=== PATIENT | male | born 1970 | race Caucasian/White ===

== ENCOUNTER 2017-08-12 21:10 | Emergency (ER) | payer SELFPAY ==
[2017-08-12] MEDS: SMZ/TMP 800/160MG TABLET. PO (22:19)
[2017-08-12] MEDS: HYDROcodone/APAP 5/325MG 1 TAB TABLET PO (22:19)
[2017-08-12] MEDS: DIPHTH,PERTUSS(ACELL),TET TOX 0.5 ML DISP.SYRIN. VAX IM (22:20)
== END 2017-08-12 22:45 | disposition home or self-care (01) ==
LOC: ER 21:10
DX: L03.116 Cellulitis of left lower limb (principal); I10 Essential (primary) hypertension; Z88.0 Allergy status to penicillin
CPT/HCPCS: 90471; 90715; 99283-25

== ENCOUNTER 2018-03-29 18:07 | Emergency (ER) | payer OTHER ==
[~2018-03-29] VITALS: Ht 172.7 cm; Wt 127.0 kg
[~2018-03-29 18:07] MED LIST: HYDR12.58 PO; LISI10TA2 PO; SULF1TAB24 PO; TRAM-48 PO
[2018-03-29 18:17] VITALS: BP 210/135
[2018-03-29] MEDS ORDERED: LIDOCAINE 1% PF 2 ML VIAL. INJ ONE (19:15)
--- NOTE | 2018-03-29 19:30 | PHYS DOC ---
Past Medical History Past Medical History: Hypertension Past Surgical History: No Surgical History Additional Information: 08/15 ppd Alcohol Use: None Drug Use: Marijuana Social History Narrative: occasionally Adult General Chief Complaint Chief Complaint: ABSCESS HPI HPI Patient is a 47 year old male who presents with complaints of a red tender area to his medial left upper thigh for the last few weeks. Patient states her last few days the area has become increasingly tender is a small amount of bloody pus out of the site. Denies any fever, testicular pain, known injury, or rash. Patient reports that he has a history of high blood pressure he states that an urgent care doctor recently prescribed him lisinopril with hydrochlorothiazide tablets 10 mg/12.5 mg. He states that this medication has poorly controlled his high blood pressure and that he is trying to find a primary care doctor. Patient states that while he was in retirement he took a combination of losartan, lisinopril, and hydrochlorothiazide. Review of Systems Review of Systems Constitutional: Denies fever or chills [] Eyes: Denies change in visual acuity, redness, or eye pain [] Musculoskeletal: Denies back pain or joint pain [] Integument: Denies rash, reports red, tender area drains some pus to the left upper inner thigh Neurologic: Denies headache, dizziness, focal weakness or sensory changes [] All other systems were reviewed and found to be within normal limits, except as documented in this note. Current Medications Current Medications Current Medications Medications (Trade) Dose Ordered Sig/Alex Start Time Stop Time Status Last Admin Dose Admin Lidocaine HCl (Xylocaine-Mpf 1% 2ml Vial) 4 ml 1X ONCE 03/29/18 19:15 03/29/18 19:16 DC 03/29/18 19:07 4 ML Allergies Allergies Allergies Coded Allergies Type Severity Reaction Last Updated Verified Penicillins Allergy Intermediate SWELLING 08/12/17 Yes Physical Exam Physical Exam Constitutional: Well developed, well nourished, no acute distress, non-toxic appearance. [] HENT: Normocephalic, atraumatic, bilateral external ears normal, oropharynx moist, no oral exudates, nose normal. [] Eyes: PERRLA, EOMI, conjunctiva normal, no discharge. [] Neck: Normal range of motion, no tenderness, supple, no stridor. [] Cardiovascular:Heart rate regular rhythm, no murmur [] Lungs & Thorax: Bilateral breath sounds clear to auscultation [] Abdomen: Bowel sounds normal, soft, no tenderness, no masses, no pulsatile masses. [] Skin: Warm, dry, no erythema, no rash. [] Back: No tenderness, no CVA tenderness. [] Extremities: No tenderness, no cyanosis, no clubbing, ROM intact, no edema. [] Neurologic: Alert and oriented X 3, normal motor function, normal sensory function, no focal deficits noted. [] Psychologic: Affect normal, judgement normal, mood normal. [] Current Patient Data Vital Signs Vital Signs Date Time Temp Pulse Resp B/P (MAP) Pulse Ox O2 Delivery O2 Flow Rate FiO2 03/29/18 18:17 98.2 108 20 210/135 (160) 96 Room Air 98.2 EKG EKG [] Radiology/Procedures Radiology/Procedures [] Course & Med Decision Making Course & Med Decision Making Pertinent Labs and Imaging studies reviewed. (See chart for details) dx: Cutaneous abscess left thigh, hypertension ; Incision and drainage of abscesses documented and procedures. Prescription written for Bactrim DS take 1 tab by mouth twice a day 10 days, and naproxen when necessary for pain. Patient was instructed to take 2 tablets of the blood pressure medication was prescribed previously. He was provided a list of primary care providers to follow up with. Recommend warm sitz baths 3 times a day and as needed for comfort may also apply warm moist packs to the area to help relieve discomfort. Follow-up with the primary care doctor about her blood pressure and for reevaluation of the site this week. Return to the emergency room if symptoms worsen. Patient verbalized an understanding of home care, medications, follow-up, and return to ED instructions and was in agreement with the plan of care. [] Dragon Disclaimer Dragon Disclaimer This electronic medical record was generated, in whole or in part, using a voice recognition dictation system. Departure Departure Impression: Primary Impression: Cutaneous abscess of left lower limb Additional Impression: Hypertension Disposition: HOME, SELF-CARE Condition: STABLE Referrals: NO PCP (PCP) Patient Instructions: Abscess, [id number] Additional Instructions: Take 2 tablets of the blood pressure medication was prescribed previously. He was provided a list of primary care providers to follow up with. Recommend warm sitz baths 3 times a day and as needed for comfort may also apply warm moist packs to the area to help relieve discomfort. Follow-up with the primary care doctor about her blood pressure and for reevaluation of the site this week. Return to the emergency room if symptoms worsen. Scripts Sulfamethoxazole/Trimethoprim (BACTRIM DS TABLET) 1 Each Tablet 1 TAB PO BID, #20 TAB Prov: FRANCISCA HARRIS APRN 03/29/18 Naproxen (NAPROXEN) 500 Mg Tablet 500 MG PO BID PRN for PAIN for 10 Days, #20 TAB 0 Refills Prov: FRANCISCA HARRIS APRN 03/29/18 Incision and Drainage Incision and Drainage : Site: L inner thigh Blade Size: 16 gauge needle I & D Procedure: betadine prep Progress 1% lidocaine was administered for anesthesia, small amount of bloody pus drainage, pt tolerated procedure well. Problem Qualifiers Additional Impression: Hypertension Hypertension type: unspecified Qualified Codes: I10 - Essential (primary) hypertension FRANCISCA HARRIS APRN Mar 29, 2018 19:30
[2018-03-29] MEDS ORDERED: NAPR-514 PO (19:37)
[2018-03-29] MEDS ORDERED: SULF1TAB24 PO (19:37)
== END 2018-03-29 19:42 | disposition home or self-care (01) ==
LOC: ER 18:07
DX: L02.416 Cutaneous abscess of left lower limb (principal); I10 Essential (primary) hypertension; F12.10 Cannabis abuse, uncomplicated; Z88.0 Allergy status to penicillin
CPT/HCPCS: 10060; 99283

== ENCOUNTER 2019-11-04 09:41 | Emergency (ER) | payer SELFPAY ==
[~2019-11-04] VITALS: Ht 172.7 cm; Wt 127.2 kg
[~2019-11-04 09:41] MED LIST changes: +NAPR-514 PO
[2019-11-04] MEDS ORDERED: METOCLOPRAMIDE HCL 10 MG/2 ML VIAL. IV ONE (10:15)
[2019-11-04] MEDS ORDERED: diphenhydrAMINE 50 MG/ML VIAL IVP ONE (10:15)
[2019-11-04] MEDS ORDERED: KETOROLAC 30 MG/ML VIAL. IV ONE (10:15)
[2019-11-04] MEDS ORDERED: IV NORMAL SALINE 1000ML BAG 1,000 ML IV ONE (10:15)
--- NOTE | 2019-11-04 10:20 | PHYS DOC ---
Past Medical History Past Medical History: High Cholesterol, Hypertension Past Surgical History: No Surgical History Smoking Status: Current Every Day Smoker Alcohol Use: None Drug Use: Marijuana General Adult EDM: Chief Complaint: HYPERTENSION HPI: HPI: Patient is a morbidly obese 49-year-old patient with hypertension and hypercholesterolemia who over the last week he has been noncompliant with his blood pressure medicine secondary to running out and not being able to get to the doctor. He states he did have his medications refilled a few days ago. This morning, he states he woke up with a severe global throbbing headache that is caused both photophobia and phonophobia along with nausea. He denies any visual changes or flashes of light. He states he has had these type of headaches in the past. He states at times hydrocodone does help. He denies any lateralizing neurologic weakness or gait disturbance. [] Review of Systems: Review of Systems: Constitutional: Denies fever or chills. [] Eyes: Denies change in visual acuity. [] HENT: Denies nasal congestion or sore throat. [] Respiratory: Denies cough or shortness of breath. [] Cardiovascular: Denies chest pain or edema. [] GI: Denies abdominal pain, nausea, vomiting, bloody stools or diarrhea. [] : Denies dysuria. [] Musculoskeletal: Denies back pain or joint pain. [] Integument: Denies rash. [] Neurologic: Per HPI [] Endocrine: Denies polyuria or polydipsia. [] Lymphatic: Denies swollen glands. [] Psychiatric: Denies depression or anxiety. [] Heart Score: Risk Factors: Risk Factors: DM, Current or recent (<one month) smoker, HTN, HLP, family history of CAD, obesity. Risk Scores: Score 0 - 3: 2.5% MACE over next 6 weeks - Discharge Home Score 4 - 6: 20.3% MACE over next 6 weeks - Admit for Clinical Observation Score 7 - 10: 72.7% MACE over next 6 weeks - Early Invasive Strategies Current Medications: Current Medications Medications (Trade) Dose Ordered Sig/Alex Start Time Stop Time Status Last Admin Dose Admin Diphenhydramine HCl (Benadryl) 25 mg 1X ONCE 11/04/19 10:15 11/04/19 10:16 DC 11/04/19 10:09 25 MG Ketorolac Tromethamine (Toradol 30mg Vial) 30 mg 1X ONCE 11/04/19 10:15 11/04/19 10:16 DC 11/04/19 10:10 30 MG Metoclopramide HCl (Reglan Vial) 10 mg 1X ONCE 11/04/19 10:15 11/04/19 10:16 DC 11/04/19 10:09 10 MG Sodium Chloride 1,000 ml @ 1,000 mls/hr 1X ONCE 11/04/19 10:15 11/04/19 11:14 11/04/19 10:08 1,000 MLS/HR Allergies: Allergies: Allergies Coded Allergies Type Severity Reaction Last Updated Verified Penicillins Allergy Intermediate SWELLING 08/12/17 Yes Physical Exam: PE: Constitutional: Well developed, well nourished, appears uncomfortable but nontoxic [] HENT: Normocephalic, atraumatic, bilateral external ears normal, oropharynx moist, no oral exudates, nose normal. [] Eyes: PERRLA, EOMI, conjunctiva normal, no discharge. [] Neck: Normal range of motion, no tenderness, supple, no stridor. [] Cardiovascular:Heart rate regular rhythm, no murmur [] Lungs & Thorax: Bilateral breath sounds clear to auscultation [] Abdomen: Bowel sounds normal, soft, no tenderness, no masses, no pulsatile masses. [] Skin: Warm, dry, no erythema, no rash. [] Back: No tenderness, no CVA tenderness. [] Extremities: No tenderness, no cyanosis, no clubbing, ROM intact, no edema. [] Neurologic: Alert and oriented X 3, normal motor function, normal sensory function, no focal deficits noted. [] Psychologic: Affect normal, judgement normal, mood normal. [] Current Patient Data: Vital Signs: Vital Signs Date Time Temp Pulse Resp B/P (MAP) Pulse Ox O2 Delivery O2 Flow Rate FiO2 11/04/19 09:45 98.2 101 20 197/121 (146) 94 98.2 EKG: EKG: [] Radiology/Procedures: Radiology/Procedures: [] Course & Med Decision Making: Course & Med Decision Making Pertinent Labs and Imaging studies reviewed. (See chart for details) [ED course: Evaluation reveals a 49-year-old generally unhealthy appearing male with a migraine headache. He was given IV fluids, Reglan 10 mg, Benadryl 25 mg and Toradol 30 mg with complete resolution of his symptoms. Of encourage the patient to take better care of himself and make sure he is taking his blood pressure medicine and work very hard to lose some weight as I believe this will help control his blood pressure much better.] Sharon Disclaimer: Sharon Disclaimer: This electronic medical record was generated, in whole or in part, using a voice recognition dictation system. Departure Departure Impression: Primary Impression: Hypertension Qualified Codes: I10 - Essential (primary) hypertension Additional Impression: Migraine headache Qualified Codes: G43.909 - Migraine, unspecified, not intractable, without status migrainosus Disposition: HOME, SELF-CARE Condition: IMPROVED Referrals: NO PCP (PCP) Patient Instructions: Migraine Headache Scripts Metoclopramide Hcl (REGLAN) 10 Mg Tablet 1 TAB PO Q8HRS PRN for migraine, #30 TAB Take 25 mg of Benadryl with each dose Prov: CHUN SHEA DO 11/04/19 CHUN SHEA DO November 04, 2019 10:20
[2019-11-04] MEDS ORDERED: METO10TA81 PO (10:36)
[2019-11-04 10:46] VITALS: BP 170/93
== END 2019-11-04 10:55 | disposition home or self-care (01) ==
LOC: ER 09:41
DX: I10 Essential (primary) hypertension (principal); G43.909 Migraine, unspecified, not intractable, without status migrainosus; H53.143 Visual discomfort, bilateral; F17.200 Nicotine dependence, unspecified, uncomplicated; F12.90 Cannabis use, unspecified, uncomplicated
CPT/HCPCS: 96374; 96375; 99284; J1200; J1885; J2765; J7030